=== PATIENT | female | born 2000 | race Caucasian/White ===

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

== ENCOUNTER 2022-12-03 09:11 | Emergency (ER) | payer BC, SELFPAY ==
--- NOTE | 2022-12-03 09:21 | ED.GENADULT ---
HPI - General Adult General Chief complaint: Allergic Reaction Stated complaint: Alergic Reaction Source: patient and RN notes reviewed Mode of arrival: ambulatory Limitations: no limitations History of Present Illness HPI narrative: Patient is a 21-year-old female who presents to the [facility] with complaints generalized rash, vomiting, and fever. Patient states that the generalized rash started in the middle of the night. States that it covers trunk, back, bilateral upper and lower extremities, and face. Patient states that she is on her last dose of Bactrim for vaginal abscess, and did not know if this rash was allergic reaction to the Bactrim. Patient states that her abscess has healed. However, she has been experiencing intermittent fevers since Wednesday. She has also been experiencing nausea and vomiting intermittently. She denies abdominal pain, diarrhea, blood in stool. She denies difficulty breathing, chest pain, or shortness of breath. Related Data Allergies Allergy/AdvReac Type Severity Reaction Status Date / Time trimethoprim Allergy Rash Verified 12/03/22 09:28 Poppy Seed Allergy Unknown Unknown Uncoded 11/26/19 15:21 Review of Systems Review of Systems: CONSTITUTIONAL: Reports fevers. EYES: Denies visual changes, redness, or discharge. ENT: Denies otalgia and sore throat. CARDIOVASCULAR: Denies chest pain, palpitations, or edema. RESPIRATORY: Denies cough or dyspnea. GASTROINTESTINAL: Denies abdominal pain or diarrhea. Reports nausea and vomiting. GENITOURINARY: Denies dysuria or hematuria. SKIN: Diffuse rash present. MUSCULOSKELETAL: Denies back pain, joint pain, or myalgia. NEUROLOGIC: Denies headache, numbness, or weakness. Pertinent positives per HPI. [facility] Past Medical History Medical History (Updated 12/03/22 @ 09:49 by Diana Byers APRN) Asthma Comments At the time of my signature, I reviewed and agree with the nursing past medical, surgical, social, and family history. There is no relevant family history pertinent to the patient complaint. Exam Narrative: GENERAL: This is a well-nourished, well-developed patient, in no apparent distress. HEAD: normocephalic, atraumatic. EYES: Sclera clear/white. Vision is grossly intact. EARS: External ears normal. Hearing grossly intact. NOSE: External nose normal with no obvious nasal discharge, nares without redness, no rhinorrhea. THROAT: Mucous membranes moist, posterior pharynx clear. NECK: Neck supple, non-tender without lymphadenopathy, masses or thyromegaly. CARDIOVASCULAR: Regular rate and rhythm without murmurs, gallops, or rubs. RESPIRATORY: Clear to auscultation. Breath sounds equal bilaterally. No wheezes, rales, or rhonchi. GASTROINTESTINAL: Abdomen soft, non-tender, nondistended. Bowel sounds are active. No hepato-splenomegaly, or palpable masses. No guarding. SKIN: warm, intact with no suspicious lesions. Diffuse maculopapular rash present to trunk, back, bilateral upper and lower extremities, and face. NEURO: awake, alert, and oriented to person, place and time. There were no obvious focal neurologic abnormalities. Course Course Level of Care: Express Care Visit Vital Signs Vital signs: Vital Signs Temperature 100.3 F H 12/03/22 09:24 Pulse Rate 122 H 12/03/22 09:24 Respiratory Rate 18 12/03/22 09:24 Blood Pressure 145/69 H 12/03/22 09:24 Pulse Oximetry 100 12/03/22 09:24 Oxygen Delivery Room Air 12/03/22 09:24 Temperature 100.3 F H 12/03/22 09:24 Pulse Rate 122 H 12/03/22 09:24 Respiratory Rate 18 12/03/22 09:24 Blood Pressure 145/69 H 12/03/22 09:24 Pulse Oximetry 100 12/03/22 09:24 Oxygen Delivery Room Air 12/03/22 09:24 Reviewed Medical Decision Making MDM Narrative Medical decision making narrative: Viral illness may last between 7-21 days; antibiotics do not cure viral illness and are NOT recommended at this time. Also, recommend symptomatic treatment includes: rest, f
[2022-12-03 09:24] VITALS: BP 145/69; PULSE 122; RESP 18; TEMP 37.9; O2SAT 100
[2022-12-03] MEDS: ONDANSETRON HCL ODT 4 MG TABLET PO (09:35)
== END 2022-12-03 10:00 | disposition home or self-care (01) ==
PROVIDERS: Emergency Provider Nurse Practitioner
DX: B09 Unspecified viral infection characterized by skin and mucous membrane lesions (principal); A08.4 Viral intestinal infection, unspecified; J45.909 Unspecified asthma, uncomplicated
CPT/HCPCS: 99203; A9270; G0463